=== PATIENT | female | born 1945 | race Caucasian/White ===

== ENCOUNTER → 2017-08-01 | Outpatient (CLI) | payer MEDICARE, OTHER ==
[~2017-08-01] MED LIST: AMBIEN 5 MG TABL5 M1 PO; ASPIRIN81 M2 PO; BENADRYL25 MG PO; CLEOCIN HCL300 MG PO; DIFLUCAN150 MG PO; ESTRADIOL 1 MG T1 M1 PO; HYDROCODONE-AP1 EAC6 PO; LINZESS145 MCG PO; LISINOPRIL20 MG PO; MIRAPEX 0.250.25 M1 PO; MOBIC15 MG PO; NEURONTIN 300300 M1 PO; NEURONTIN600 MG PO; PREDNISONE 10 M10 MG; SONATA5 M1 PO; WELLBUTRIN 100100 MG PO; WELLBUTRIN XL300 MG PO; ZOLOFT25 MG PO
== END ==
LOC: M.RAD 08:44
DX: M85.89 Other specified disorders of bone density and structure, multiple sites (principal); M81.0 Age-related osteoporosis without current pathological fracture; Z78.0 Asymptomatic menopausal state

== ENCOUNTER → 2017-10-05 | Outpatient (CLI) | payer OTHER | LOC: M.CT 09-28 09:45 | DX: Z13.6 Encounter for screening for cardiovascular disorders (principal) ==

== ENCOUNTER → 2017-10-26 | Outpatient (CLI) | payer MEDICARE, OTHER ==
[2017-10-26 10:41] LABS: ABSOLUTE EOSINOPHILS 0.2 thou/uL (0.0-0.7); ABSOLUTE LYMPHOCYTES 1.5 thou/uL (0.8-5.3); ABSOLUTE MONOCYTES 0.5 thou/uL (0.0-1.2); ABSOLUTE NEUTROPHILS 3.8 thou/uL (1.6-8.1); BASOPHILS 0.8 %; EOSINOPHILS 3.2 %; HEMATOCRIT 36.1 % (37.0-47.0); HEMOGLOBIN 12.1 gm/dL (12.0-15.0); MCH 32.1 pg (26.0-34.0); MCHC 33.4 g/dL (28.0-37.0); MONOCYTES 7.7 %; MPV 6.1 fl. (7.2-11.1); NUCLEATED RBCS 0 /100WBC; PLATELET COUNT* 277 thou/uL (150-400); POLYS 63.3 %; RBC 3.76 mil/uL (4.20-5.00); RDW-CV 12.6 % (10.5-14.5)
[2017-10-26 11:42] LABS: ESR (SEDRATE) 21 mm/hr (0-30)
== END ==
LOC: M.LAB 10:11
PROVIDERS: Orthopaedic Surgery
DX: M25.511 Pain in right shoulder (principal); I25.10 Atherosclerotic heart disease of native coronary artery without angina pectoris; M85.80 Other specified disorders of bone density and structure, unspecified site; Z96.611 Presence of right artificial shoulder joint

== ENCOUNTER → 2017-11-27 | Outpatient (CLI) | payer MEDICARE, OTHER | LOC: M.RAD 08:48 | DX: J40 Bronchitis, not specified as acute or chronic (principal); I10 Essential (primary) hypertension ==

== ENCOUNTER 2018-05-15 09:43 | Emergency (ER) | payer OTHER ==
[~2018-05-15] VITALS: Ht 167.6 cm; Wt 71.2 kg
[2018-05-15] MEDS ORDERED: LIPITOR10 MG PO (09:56)
[2018-05-15] MEDS ORDERED: COZAAR 25 MG TA25 M1 PO (09:56)
[2018-05-15] MEDS ORDERED: ALENDRONATE SOD70 MG PO (09:57)
[2018-05-15 12:40] VITALS: BP 156/57
== END 2018-05-15 14:48 | disposition home or self-care (01) ==
LOC: M.ERS 09:43
DX: M17.11 Unilateral primary osteoarthritis, right knee (principal); M25.461 Effusion, right knee; I10 Essential (primary) hypertension; Z90.710 Acquired absence of both cervix and uterus; Z87.442 Personal history of urinary calculi; Z96.611 Presence of right artificial shoulder joint

== ENCOUNTER → 2018-06-20 | Outpatient (CLI) | payer OTHER ==
[~2018-06-20] MED LIST changes: +ALENDRONATE SOD70 MG PO; +COZAAR 25 MG TA25 M1 PO; +LIPITOR10 MG PO
== END ==
LOC: M.LAB 13:42
PROVIDERS: Internal Medicine Gastroenterology
DX: D64.9 Anemia, unspecified (principal); R11.2 Nausea with vomiting, unspecified; M85.80 Other specified disorders of bone density and structure, unspecified site; I10 Essential (primary) hypertension; I25.10 Atherosclerotic heart disease of native coronary artery without angina pectoris

== ENCOUNTER 2018-08-30 05:59 | Inpatient (IN) | payer OTHER ==
[2018-08-15 09:10] LABS: ABSOLUTE EOSINOPHILS 0.1 thou/uL (0.0-0.7); ABSOLUTE LYMPHOCYTES 1.1 thou/uL (0.8-5.3); ABSOLUTE MONOCYTES 0.3 thou/uL (0.0-1.2); ABSOLUTE NEUTROPHILS 2.6 thou/uL (1.6-8.1); HEMATOCRIT 34.1 % (37.0-47.0); HEMOGLOBIN 11.2 gm/dL (12.0-15.0); LYMPHOCYTES 25.7 %; MCH 30.1 pg (26.0-34.0); MCHC 32.8 g/dL (28.0-37.0); MCV 91.7 fL (80.0-100.0); MPV 6.4 fl. (7.2-11.1); NUCLEATED RBCS 0 /100WBC; PLATELET COUNT* 253 thou/uL (150-400); POLYS 62.3 %; RBC 3.72 mil/uL (4.20-5.00); RDW-CV 13.6 % (10.5-14.5); WBC 4.1 thou/uL (4.0-11.0)
[2018-08-15 09:26] LABS: APTT 29.9 Seconds (25.0-31.3); PROTIME 10.7 Seconds (9.20-11.50)
[2018-08-15 09:27] LABS: CALCIUM 8.5 mg/dL (8.5-10.1); CREATININE 0.9 mg/dL (0.6-1.3); POTASSIUM 3.3 mmol/L (3.5-5.1)
[2018-08-15 09:32] LABS: ALBUMIN 3.7 g/dL (3.4-5.0); TOTAL BILIRUBIN 0.4 mg/dL (<0.1-1.0); TOTAL PROTEIN 6.6 g/dL (6.4-8.2)
[2018-08-15 10:48] LABS: ESR (SEDRATE) 13 mm/hr (0-30)
--- NOTE | 2018-08-15 10:57 | EKG ---
[place] [address] ELECTROCARDIOGRAM REPORT Name: AALIYAH CHRISTIANSENLMTea BHATIA Room: [facility] M.R.#: [id number] Admission: Attend Phys: Cody Sparks Discharge: Date of : 49 Report #: [id number] THIS REPORT FOR: //name// [facility] Test Date: 2018-08-15 Test Time: 09:11:32 Pat Name: KARLA CHRISTIANSEN Department: Room: Gender: F Mentally Impaired Teacher: : 1945 Requested By: Adria Cruz Order Number: [id number] Shavon MD: Rg Rodriguez Measurements Intervals [place] Rate: 73 P: -26 VT: 159 QRS: 11 QRSD: 86 T: 66 QT: 393 QTc: 433 Interpretive Statements Sinus rhythm Ventricular premature complex ST elevation, consider inferior injury Baseline wander in lead(s) II,III,aVL,aVF,V3,V4,V5,V6 Compared to ECG 01/04/2015 18:09:04 Ventricular premature complex(es) now present ST (T wave) deviation now present Myocardial infarct finding now present Electronically Signed On 08-15-2018 10:57:11 CDT by Rg Rodriguez [email or web address] <ELECTRONICALLY SIGNED> By: Rg Rodriguez MD, [facility] 08/15/18 1057 0 0 Rg Rodriguez MD, [facility] /EPI
[~2018-08-30] VITALS: Ht 167.6 cm; Wt 71.2 kg
--- NOTE | ~2018-08-30 | OP ---
[address] [address] OPERATIVE REPORT Name: KARLA CHRISTIANSEN Room: [facility].#: [id number] Admission: 08/30/18 Attend Phys: Cody Sparks Discharge: Date of : 49 Report #: [id number] THIS REPORT FOR: //name// CC: Adria Rodgers DICTATED BY: Marco Antonio Fregoso DO DATE OF SERVICE: 08/30/2018 DIAGNOSIS: Right knee degenerative joint disease. PROCEDURE PERFORMED: Right total knee arthroplasty. SURGEON: Adria Cruz DO. SENIOR ENVIRONMENTAL CONSULTANT: Marco Antonio Fregoso DO. ANESTHESIA: 1. General. 2. Local. 3. IV regional block. ESTIMATED BLOOD LOSS: 100 mL. SPECIMENS: None. COMPLICATIONS: None. DRAINS: None. CONDITION OF THE PATIENT: Stable to PACU. INDICATIONS FOR PROCEDURE: The patient is a pleasant 72-year-old female who has had severe osteoarthritis for many years. She has failed injections, activity modifications, weight management and home exercises. She continues to have pain, decreased quality of life. It is recommended she will be a candidate for right total knee arthroplasty. All risks, benefits, complications, indications and alternatives were reviewed. The patient wished to proceed. DESCRIPTION OF PROCEDURE: The patient was brought to the operative suite, placed in a well-padded table and given the benefit of general anesthesia. The right lower extremity was then sterilely prepped and draped in standard fashion. Timeout was taken to ensure correct patient, procedure and operative site and antibiotics were given; everybody in the room was in agreement. At that time, a [address] [place] [address] OPERATIVE REPORT Name: KARLA CHRISTIANSEN Room: [facility]..#: [id number] Admission: 08/30/18 Attend Phys: Cody Sparks Discharge: Date of : 49 Report #: [id number] 10 blade scalpel was used to make an incision over the anterior aspect of the right knee. Subcutaneous flaps were developed. Second 10 blade was used to perform medial parapatellar arthrotomy. Anterior horns of the menisci were excised. Subperiosteal tibial sleeve was developed. The knee was brought up into flexion. A drill was then used to find an intramedullary canal of the femur. We then used the intramedullary distal femoral cutting guide set at 5 degrees valgus, took a 10-mm resection of the distal femur. We then, using the AP sizing device, sized the femur to a size 8 and pinned this in with 3 degrees of external rotation. We then made the appropriate anterior and posterior cuts, followed by anterior, posterior and chamfer cuts with the 4-in-1 cutting block. Once this portion of the case was done, we then used extramedullary tibial guide. This was pinned in line with the medial third tibial tubercle, down the tibial crest of the middle of the ankle. Appropriate slope was dialed in. A 10-mm resection was made at the high lateral side. We then used a rongeur to remove any bony osteophytes that were still present, trialed with 12 block spacer and had adequate flexion and extension gaps that were equal. We then used Bovie electrocautery to remove the meniscal bodies at both medial and lateral as well as the PCL. The tibia was then sized to a size E. We screwed this in the appropriate position in line with the medial third of the tibial tubercle and had excellent fit and coverage of her tibia. We then put on a size 8 trial femur and a trial with 13-mm articular insert. With this, we had full range of motion, excellent varus and valgus stability and equal flexion and extension gaps. We then resurfaced the patella freehand with a saw and drilled 3 peg holes, measured this to a 32 mm component and trialed and had excellent patellar tracking. We then went on to drill and punch our proximal tibial. With pulsatile lavage, the bone ends and cement was mixed at the back table. We then carried out cementing first at the tibia, followed by the femur and patella. Patellar clamp was used to compress the patellar component. The 13-mm final articular insert was placed and once again, we were pleased with the varus and valgus stability as well as the full range of motion and stability through motion. Knee was then thoroughly irrigated with pulsatile lavage. Local pain cocktail was injected. We then brought the knee to 90 and allowed to sit here while the cement hardened. We then began closing with a #1 Vicryl in rarvah-rp-yzhpj fashion, followed by a running #1 Stratafix subcutaneously and closed with a 2-0 Vicryl followed by a 3-0 Stratafix and Dermabond glue. A Mepilex dressing and DIEGO hose were applied. The patient was awoken from Anesthesia and brought to the PACU in stable condition. By: 0933 [id number] Cruz DO /andreia
[~2018-08-30 05:59] MED LIST changes: +FLEXERIL PO; +LIPITOR 20 MG T20 M1 PO; +LOSARTAN-HCTZ1 EACH PO; +PROTONIX40 M1 PO; +REGLAN 5 MG TAB5 MG PO; +TROSPIUM CHLORI20 MG PO; +XANAX 0.5 MG0.5 MG PO
[2018-08-30 07:26] VITALS: BP 144/78
[2018-08-30 11:20] VITALS: BP 163/75
[2018-08-30 15:32] VITALS: BP 125/47
--- NOTE | 2018-08-30 16:16 | NUR ---
MARIANNA SAW PT.AND . SHE HAD RTKA TODAY. STATED HER WILL BE WITH HER AND CAN ASSIST HER AT DISCHARGE. SHE HAS A WALKER WITH A SEAT. TOLD HER SHE WILL NEED A STANDARD FRONT WHEEL WALKER. SHE USES [employer] FOR HER PHARMACY. PRESCRIPTION FOR [facility] CALLED IN WRITTEN [phone]. COPAY WILL NEED TO BE CHECKED. PT.CHOSE TO USE [facility] FOR HOME HEALTH. REFERRAL SENT TO [facility] AND SPOKE WITH HER. [facility] [phone]/ FAX [phone].
--- NOTE | 2018-08-30 16:26 | NUR ---
RECIEVED O.T. DONG. WILL DEFER TO P.T. AT THIS TIME. PLEASE ORDER FURTHER O.T. SERVICES IF NEEDED.
[2018-08-30 20:00] VITALS: BP 128/73
[2018-08-31] VITALS: BP 144/56
[2018-08-31 03:30] VITALS: BP 129/54
[2018-08-31 04:55] LABS: HEMATOCRIT 25.2 % (37.0-47.0); HEMOGLOBIN 8.7 gm/dL (12.0-15.0)
--- NOTE | 2018-08-31 05:48 | NUR ---
ASSUMED PATIENT CARE AT 1900. PATIENT ALERT AND ORIENTED TIMES FOUR. DAUGHTER IN ROOM AT THIS TIME PATIENT IS HOPEFUL SHE WILL BE ABLE TO DISCHARGE HOME SOON. PAIN CONTROLLED WITH ORAL PAIN MEDICATION. BIOCHEMICAL DEVELOPMENT ENGINEER AND HOURLY ROUNDING COMPLETED DOCUMENTED
[2018-08-31 08:11] VITALS: BP 102/48
--- NOTE | 2018-08-31 09:25 | NUR ---
Eliquis will cost $55.57
[2018-08-31 17:09] VITALS: BP 127/44
--- NOTE | 2018-08-31 19:00 | NUR ---
REC'D REPORT ON PATENT APPROX 1400. PATIENT ALERT AND ORIENTED. SEE MEDICATION LIST FOR PAIN RELIEF. POLAR PACK CURRENTLY ON RIGHT KNEE SURGICAL AREA. PATIENT PLEASANT AND COOPERATIVE. PATIENT USING FWW W/ SBA WHILE AMBULATING. IN VISITING THIS AFTERNOON. PATIENT CURRENTLY RESTING IN BED. CALL LIGHT IN REACH. TV ON. DENIES OTHER NURSING NEEDS AT THIS TIME. ~TJRN
[2018-08-31 21:00] VITALS: BP 128/46
[2018-09-01 04:30] LABS: HEMOGLOBIN 8.6 gm/dL (12.0-15.0); MCH 31.5 pg (26.0-34.0); MCHC 34.5 g/dL (28.0-37.0); MCV 91.5 fL (80.0-100.0); MPV 6.8 fl. (7.2-11.1); RBC 2.73 mil/uL (4.20-5.00); RDW-CV 13.9 % (10.5-14.5); WBC 7.8 thou/uL (4.0-11.0)
[2018-09-01 04:53] LABS: CALCIUM 8.3 mg/dL (8.5-10.1); CREATININE 0.7 mg/dL (0.6-1.3); MAGNESIUM 1.6 mg/dL (1.8-2.4); POTASSIUM 3.9 mmol/L (3.5-5.1)
--- NOTE | 2018-09-01 06:12 | NUR ---
PT REMAINED ALERT AND ORIENTED. VITALS STABLE RA. MEDS GIVEN ORDERED. PAIN CONTROLLED WITH HYDRO AND OXY IR. PT STATED HAVING BM 5 DAYS AGO BUT REFUSED ANY LAXATIVES. NO NAUSEA OR VOMITING. DRESSING ON RT HIP CLEAN AND DRY. POLAR CARE IN PLACE. WILL CONTINUE TO MONITOR.
[2018-09-01 08:02] VITALS: BP 174/67
[2018-09-01] MEDS ORDERED: FERREX 150 PLU1 EAC1 PO (09:28)
[2018-09-01] MEDS ORDERED: LIDOPATCH1 EACH TOP (09:28)
[2018-09-01] MEDS ORDERED: ELIQUIS5 MG PO (09:28)
[2018-09-01] MEDS ORDERED: OXYCODONE HCL 55 MG PO (09:28)
[2018-09-01] MEDS ORDERED: TRAMADOL 50 MG50 MG PO (09:28)
[2018-09-01 09:42] VITALS: BP 174/67
[2018-09-01 16:42] VITALS: BP 170/64
--- NOTE | 2018-09-01 17:00 | NUR ---
DISCHARGE TO HOME W/ HOME HEALTH SERVICES. DISCHARGE INSTRUCTION REVIEWED W/ PATIENT, PATIENT STATES VERBALLY OF UNDERSTANDING. COPY OF DISCHARGE INSTRUCTIONS AND SCRIPTS GIVEN TO PATIENT. BELONGINGS GATHERED W/ PRESENT, CPM AND WALKER AMONG SUPPLIES SENT HOME WITH PATIENT. PATIENT CONTINUES TO C/O INCREASED STIFFNESS IN RIGHT KNEE, PATIENT STATES THAT SHE DOESN'T HAVE PAIN WHEN SHE IS LAYING DOWN AND STILL. PATIENT INSTRUCTED TO F/U WITH PHYSICIAN WITH ANY INCREASE IN PAIN OR S/S INFECTION/DVT SUCH REDNESS, SWELLING. PATIENT STATES VERBALLY OF UNDERSTANDING. IV CATH DISCONTINUED W/ TIP INTACT. COTTON BALL/TAPE APPLIED TO SITE. PATIENT ESCORTED TO AWAITING VEHICLE VIA WC PER LIVESTOCK BRANDS INSPECTOR. DENIES FURTHER NURSING NEEDS AT TIME OF DISCHARGE. ~TJRN
== END 2018-09-01 17:00 | disposition home health service (06) | DRG 470 ==
LOC: M.SUR 05:59 → M.ORTHSURG 12:21
PROVIDERS: Internal Medicine; Orthopaedic Surgery; ADMIT Internal Medicine
PROC: 0SRC0J9 Replacement of Right Knee Joint with Synthetic Substitute, Cemented, Open Approach (ICD-10-PCS; principal; 2018-08-30)
DX: M17.11 Unilateral primary osteoarthritis, right knee (principal); I10 Essential (primary) hypertension; Z96.1 Presence of intraocular lens; Z96.611 Presence of right artificial shoulder joint; Z90.710 Acquired absence of both cervix and uterus; Z98.41 Cataract extraction status, right eye; Z98.42 Cataract extraction status, left eye; Z90.49 Acquired absence of other specified parts of digestive tract; Z98.84 Bariatric surgery status; Z87.442 Personal history of urinary calculi

== ENCOUNTER → 2019-02-18 | Outpatient (CLI) | payer OTHER ==
[~2019-02-18] MED LIST changes: +COLACE100 MG PO; +ELIQUIS2.5 MG PO; +ELIQUIS5 MG PO; +FERREX 150 PLU1 EAC1 PO; +LIDOPATCH1 EACH TOP; +MILK OF MA400 MG/5 M PO; +NORCO 5-325 TA1 EAC1 PO; +OXYCODONE HCL 55 MG PO; +TRAMADOL 50 MG50 MG PO
== END ==
LOC: M.RAD 10:40
DX: Z12.31 Encounter for screening mammogram for malignant neoplasm of breast (principal)

== ENCOUNTER 2019-02-21 06:05 | Inpatient (IN) | payer OTHER ==
[2019-02-06 09:23] LABS: ABSOLUTE EOSINOPHILS 0.1 thou/uL (0.0-0.7); ABSOLUTE LYMPHOCYTES 0.8 thou/uL (0.8-5.3); ABSOLUTE MONOCYTES 0.4 thou/uL (0.0-1.2); ABSOLUTE NEUTROPHILS 2.7 thou/uL (1.6-8.1); BASOPHILS 0.9 %; HEMATOCRIT 33.8 % (37.0-47.0); HEMOGLOBIN 11.6 gm/dL (12.0-15.0); LYMPHOCYTES 19.6 %; MCH 32.9 pg (26.0-34.0); MCHC 34.4 g/dL (28.0-37.0); MCV 95.7 fL (80.0-100.0); MONOCYTES 9.9 %; MPV 5.7 fl. (7.2-11.1); NUCLEATED RBCS 0 /100WBC; PLATELET COUNT* 219 thou/uL (150-400); POLYS 66.6 %; RBC 3.53 mil/uL (4.20-5.00); RDW-CV 15.9 % (10.5-14.5); WBC 4.1 thou/uL (4.0-11.0)
[2019-02-06 09:32] LABS: APTT 27.3 Seconds (25.0-31.3); PROTIME 10.6 Seconds (9.20-11.50)
[2019-02-06 09:46] LABS: ALBUMIN 3.6 g/dL (3.4-5.0); CALCIUM 8.7 mg/dL (8.5-10.1); POTASSIUM 4.2 mmol/L (3.5-5.1); TOTAL BILIRUBIN 0.3 mg/dL (<0.1-1.0); TOTAL PROTEIN 6.6 g/dL (6.4-8.2)
[2019-02-06 10:37] LABS: ESR (SEDRATE) 10 mm/hr (0-30)
--- NOTE | 2019-02-06 11:20 | EKG ---
[place] [address] ELECTROCARDIOGRAM REPORT Name: CHRISTIANSENAALIYAHKARLA JANNETTE Room: [facility]..#: [id number] Admission: Attend Phys: Adria Cruz DO Discharge: Date of : 49 Report #: [id number] THIS REPORT FOR: //name// [facility] Test Date: 2019-02-06 Test Time: 09:32:20 Pat Name: KARLA CHRISTIANSEN Department: Room: Gender: F Gluing Machine Operator Electronic: : 1945 Requested By: Adria Cruz Order Number: [id number] Shavon MD: Onesimo Medeiros Measurements Intervals [place] Rate: 75 P: -28 CA: 163 QRS: -23 QRSD: 90 T: 45 QT: 389 QTc: 435 Interpretive Statements Sinus rhythm Borderline left axis deviation Baseline wander in lead(s) II,III,aVR,aVF Compared to ECG 08/15/2018 09:11:32 Ventricular premature complex(es) no longer present ST (T wave) deviation no longer present Myocardial infarct finding no longer present Electronically Signed On 02-06-2019 11:20:42 CDT by Onesimo Medeiros [email or web address] <ELECTRONICALLY SIGNED> By: Onesimo Medeiros MD, FACC 02/06/19 1120 1 Onesimo Medeiros MD, FACC /EPI
[~2019-02-21] VITALS: Ht 167.6 cm; Wt 65.8 kg
[~2019-02-21 06:05] MED LIST changes: -COLACE100 MG PO; -ELIQUIS2.5 MG PO; -MILK OF MA400 MG/5 M PO; -NORCO 5-325 TA1 EAC1 PO
[2019-02-21 06:35] VITALS: BP 136/66
[2019-02-21 15:29] VITALS: BP 156/63
[2019-02-21 20:28] VITALS: BP 167/83
[2019-02-22] VITALS (8 sets, daily range): BP systolic 139–156; BP diastolic 58–70
[2019-02-22 04:17] LABS: HEMATOCRIT 29.3 % (37.0-47.0); HEMOGLOBIN 9.8 gm/dL (12.0-15.0)
[2019-02-22] MEDS ORDERED: OXYCODONE HCL 55 MG PO (11:01)
[2019-02-22] MEDS ORDERED: ELIQUIS2.5 MG PO (11:01)
[2019-02-22] MEDS ORDERED: TRAMADOL 50 MG50 MG PO (11:01)
[2019-02-22] MEDS ORDERED: COLACE100 MG PO (11:02)
[2019-02-22] MEDS ORDERED: MILK OF MA400 MG/5 M PO (11:05)
[2019-02-22] MEDS ORDERED: NORCO 5-325 TA1 EAC1 PO (12:57)
--- NOTE | 2019-02-28 13:42 | OP ---
[address] [place] [address] OPERATIVE REPORT Name: KARLA CHRISTIANSEN Room: [address] IN ..#: [id number] Admission: 02/21/19 Attend Phys: Cody Sparks Discharge: 02/22/19 Date of : 49 Report #: [id number] THIS REPORT FOR: //name// CC: Lori Rodgers DATE OF SERVICE: 02/21/2019 PREOPERATIVE DIAGNOSIS: Primary osteoarthritis, left knee. POSTOPERATIVE DIAGNOSIS: Primary osteoarthritis, left knee. PROCEDURES: 1. Left total knee arthroplasty. 2. Open reduction and internal fixation, medial femoral epicondyle. SURGEON: Adria Cruz DO CLOTH MERCERIZER BACK TENDER: Jose Chance DO ANESTHESIA: General with peripheral nerve block per anesthesia in preoperative holding and local periarticular block. FLUIDS: Lactated Ringer's. ANTIBIOTICS: 2 g Ancef IV preoperatively. DRAINS: None. SPECIMENS: None. ESTIMATED BLOOD LOSS: 150 mL. COMPLICATIONS: Intraoperative medial femoral epicondyle fracture. DRAINS: None. SPECIMENS: None. ORTHOPEDIC IMPLANTS: Pierre Persona total knee arthroplasty system. OTHER: 1 g tranexamic acid IV preoperatively. HISTORY: The patient is a 73-year-old female with longstanding history of left knee pain. She has known advanced osteoarthritis of the left knee. Radiographs show liqr-sk-zptb articulation, subchondral sclerosis, and periarticular [address] [place] [address] OPERATIVE REPORT Name: KARLA CHRISTIANSEN Room: [address] M.R.#: [id number] Admission: 02/21/19 Attend Phys: Cody Sparks Discharge: 02/22/19 Date of : 49 Report #: [id number] osteophytes. She has failed nonoperative treatments in the form of corticosteroid injections as well as physical therapy. She walks with antalgic gait with a valgus deformity. She returns today for elective left total knee arthroplasty. Risks, benefits, complication, indications, and alternatives were discussed. She has voiced understanding and signed consent and elected to proceed. Risks include but not limited to fracture, infection, neurovascular injury, continued pain, loss of motion, need for subsequent revision surgery, DVT, PE, TX, stroke, and even . DESCRIPTION OF PROCEDURE: The patient was taken to the operative suite, placed in supine position, given benefit of general anesthetic after being given peripheral nerve blocks in preoperative holding. A well-padded tourniquet was placed on the left upper thigh. Left lower extremity was sterilely prepped and draped in the usual fashion. Proper operative sites confirmed standard timeout technique. An anterior midline incision was made at the left knee. Dissection was carried out at the anterior retinaculum. Standard medial parapatellar arthrotomy was performed. Infrapatellar fat pad was debrided. Subperiosteal sleeve was elevated off the medial tibial plateau. The patella was everted and the knee was brought into full flexion. Intramedullary canal of the femur was accessed with a starting drill. Intramedullary curry was placed and a 7-degree valgus cut was utilized. Block was pinned into position and the cut was made with an oscillating saw. The distal femur was then sized and drilled in appropriate external rotation with regards to Anamaria's lines and epicondylar axis. The 4-in-1 cutting block was placed. Anterior cut was confirmed to be appropriate with a feeler gauge and then a block was pinned into position. All 4 cuts were made with an oscillating saw. I then turned my attention to the proximal tibia where an extramedullary alignment guide was placed in line with the mechanical axis of the tibia. Depth of resection was measured as 2 mm off the most effective portion of the lateral tibial plateau. The block was pinned into position and the cut was made with an oscillating saw. The proximal tibia was then sized. Trial tibial baseplate was pinned into position. Trial femoral component was placed and a trial tibial insert was placed. The knee was taken through full range of motion, shown to have excellent ligamentous stability and range of motion with a 14-mm spacer. The attention was then turned to the patella, which was freehand cut with an oscillating saw, it was then measured and drilled. A trial patellar button was placed. Knee was taken through a range of motion, shown to have excellent patellar tracking. All trials were removed except the tibial baseplate which was used to prepare the proximal tibia with cruciform punch. This trial was then removed. Cut bone surfaces were thoroughly irrigated with pulse lavage and then dried. Posterior capsule was injected with pain cocktail consisting of Marcaine, morphine, epinephrine, and normal saline. Posterior capsule was cauterized with Bovie at this time as well. Cement was mixed. Once cement reached appropriate viscosity, the final components were cemented into position starting with the tibia, the femur, and the patella. Patella was compressed with patellar clamp. All excess cement was removed. Thorough irrigation was performed. Final tibial insert was implanted [address] [address] OPERATIVE REPORT Name: KARLA CHRISTIANSEN Room: [address] IN [facility]#: [id number] Admission: 02/21/19 Attend Phys: Cody Sparks Discharge: 02/22/19 Date of : 49 Report #: [id number] at this time. At this time, during final tibial insert implantation, it was noted that the medial femoral epicondyle cortex began to peel due to the patient's osteoporotic bone. I then secured this area utilizing a 5.5 mm Bio-SwiveLock suture anchor from [employer] placed into the cancellous bone achieving excellent fixation. Four suture limbs were passed individually through the medial soft tissue structures as well as cortex of the medial femoral epicondyle and the suture limbs were tied over the top providing excellent fixation of this incomplete fracture of the medial femoral epicondyle. Thorough irrigation was performed. Tourniquet was taken down. Hemostasis was shown to be appropriate. Anterior retinaculum was closed with combination of #1 Vicryl interrupted sodbwx-cg-nzhca fashion and running #2 Quill suture. Subcuticular closure was performed with 2-0 Vicryl in simple inverted interrupted fashion. The skin was closed with running 3-0 Stratafix subcuticular suture with Dermabond on skin. Sterile dressings were applied. The patient tolerated the procedure well. All sponge and needle counts were correct x 2. The patient was taken to recovery room in stable condition. Adria Hatfield DO, attest that I was present and scrubbed in for the entirety of the case excluding skin closure. <ELECTRONICALLY SIGNED> By: Jamal Borja DO 02/28/19 1342 0810 0901Adria Cruz DO /andreia
== END 2019-02-22 15:19 | disposition home health service (06) | DRG 470 ==
LOC: M.TBA 06:05 → M.SUR 06:32 → EDSTATUS 07:24 → M.TBA 07:26 → M.ORTHSURG 10:40 → M.TBA 10:40 → M.ORTHSURG 11:46 → M.TBA 13:48 → M.ORTHSURG 02-22 15:19
PROVIDERS: Orthopaedic Surgery; ADMIT Internal Medicine
PROC: 0QSC04Z Reposition Left Lower Femur with Internal Fixation Device, Open Approach (ICD-10-PCS; principal; 2019-02-21)
PROC: 0SRD0J9 Replacement of Left Knee Joint with Synthetic Substitute, Cemented, Open Approach (ICD-10-PCS; principal; 2019-02-21)
DX: M17.12 Unilateral primary osteoarthritis, left knee (principal); T84.89XA Other specified complication of internal orthopedic prosthetic devices, implants and grafts, initial encounter; M96.662 Fracture of femur following insertion of orthopedic implant, joint prosthesis, or bone plate, left leg; Y83.8 Other surgical procedures as the cause of abnormal reaction of the patient, or of later complication, without mention of misadventure at the time of the procedure; Y92.234 Operating room of hospital as the place of occurrence of the external cause; I10 Essential (primary) hypertension; K21.9 Gastro-esophageal reflux disease without esophagitis; F41.9 Anxiety disorder, unspecified; M81.0 Age-related osteoporosis without current pathological fracture; E78.5 Hyperlipidemia, unspecified; Z98.42 Cataract extraction status, left eye; Z98.41 Cataract extraction status, right eye; Z90.49 Acquired absence of other specified parts of digestive tract; Z82.49 Family history of ischemic heart disease and other diseases of the circulatory system; Z90.710 Acquired absence of both cervix and uterus

== ENCOUNTER → 2019-04-11 | Outpatient (CLI) | payer OTHER ==
[~2019-04-11] MED LIST changes: +COLACE100 MG PO; +ELIQUIS2.5 MG PO; +MILK OF MA400 MG/5 M PO; +NORCO 5-325 TA1 EAC1 PO
== END ==
LOC: M.ULTRA 12:21
DX: N63.22 Unspecified lump in the left breast, upper inner quadrant (principal)

== ENCOUNTER → 2019-06-09 | Outpatient (CLI) | payer OTHER | LOC: M.ULTRA 10:20 | DX: I65.23 Occlusion and stenosis of bilateral carotid arteries (principal); I25.10 Atherosclerotic heart disease of native coronary artery without angina pectoris; E78.2 Mixed hyperlipidemia; I10 Essential (primary) hypertension; R42 Dizziness and giddiness ==

== ENCOUNTER → 2020-03-02 | Outpatient (CLI) | payer OTHER | LOC: M.RAD 10:20 → M.ULTRA 11:00 | PROVIDERS: ATTEND Orthopaedic Surgery | DX: Z12.31 Encounter for screening mammogram for malignant neoplasm of breast (principal); M25.512 Pain in left shoulder ==

== ENCOUNTER → 2020-06-03 | Outpatient (CLI) | payer OTHER ==
[2020-06-03 15:14] LABS: ABSOLUTE BASOPHILS 0.1 thou/uL (0.0-0.2); ABSOLUTE EOSINOPHILS 0.2 thou/uL (0.0-0.7); ABSOLUTE LYMPHOCYTES 0.8 thou/uL (0.8-5.3); ABSOLUTE MONOCYTES 0.4 thou/uL (0.0-1.2); ABSOLUTE NEUTROPHILS 5.1 thou/uL (1.6-8.1); BASOPHILS 0.9 %; EOSINOPHILS 2.6 %; HEMATOCRIT 32.3 % (37.0-47.0); HEMOGLOBIN 11.2 gm/dL (12.0-15.0); LYMPHOCYTES 12.9 %; MCHC 34.7 g/dL (28.0-37.0); MCV 97.8 fL (80.0-100.0); MONOCYTES 5.9 %; MPV 6.2 fl. (7.2-11.1); NUCLEATED RBCS 0 /100WBC; PLATELET COUNT* 214 thou/uL (150-400); POLYS 77.7 %; RBC 3.31 mil/uL (4.20-5.00); RDW-CV 13.2 % (10.5-14.5); WBC 6.6 thou/uL (4.0-11.0)
[2020-06-03 15:58] LABS: % SATURATION 28 % (20-39); IRON 84 ug/dL (50-175)
== END ==
LOC: M.LAB 14:51
PROVIDERS: ATTEND Internal Medicine Gastroenterology
DX: D64.9 Anemia, unspecified (principal); R53.83 Other fatigue; R19.7 Diarrhea, unspecified

== ENCOUNTER → 2020-07-05 | Outpatient (CLI) | payer OTHER | LOC: M.CT 08:27 | PROVIDERS: ATTEND Internal Medicine | DX: G31.9 Degenerative disease of nervous system, unspecified (principal); R26.2 Difficulty in walking, not elsewhere classified ==

== ENCOUNTER 2020-07-15 12:57 | Inpatient (IN) | payer OTHER ==
[~2020-07-15] VITALS: Ht 167.6 cm; Wt 71.6 kg
[2020-07-15 13:10] VITALS: BP 123/66
[2020-07-15 13:31] LABS: ABSOLUTE BASOPHILS 0.1 thou/uL (0.0-0.2); ABSOLUTE EOSINOPHILS 0.3 thou/uL (0.0-0.7); ABSOLUTE LYMPHOCYTES 0.6 thou/uL (0.8-5.3); ABSOLUTE MONOCYTES 0.4 thou/uL (0.0-1.2); ABSOLUTE NEUTROPHILS 6.5 thou/uL (1.6-8.1); BASOPHILS 0.9 %; EOSINOPHILS 4.4 %; HEMATOCRIT 27.5 % (37.0-47.0); HEMOGLOBIN 9.3 gm/dL (12.0-15.0); LYMPHOCYTES 7.6 %; MCH 32.2 pg (26.0-34.0); MCHC 33.7 g/dL (28.0-37.0); MCV 95.5 fL (80.0-100.0); MONOCYTES 4.9 %; MPV 6.5 fl. (7.2-11.1); NUCLEATED RBCS 0 /100WBC; PLATELET COUNT* 198 thou/uL (150-400); POLYS 82.2 %; RBC 2.88 mil/uL (4.20-5.00); RDW-CV 12.6 % (10.5-14.5); WBC 7.9 thou/uL (4.0-11.0)
[2020-07-15 13:41] LABS: CALCIUM 7.8 mg/dL (8.5-10.1); CREATININE 7.8 mg/dL (0.6-1.3)
[2020-07-15 13:52] LABS: ALBUMIN 3.5 g/dL (3.4-5.0); TOTAL BILIRUBIN 0.3 mg/dL (<0.1-1.0); TOTAL PROTEIN 6.9 g/dL (6.4-8.2)
[2020-07-15 14:20] LABS: APTT 29.1 Seconds (25.0-31.3); PROTIME 10.9 Seconds (9.20-11.50)
[2020-07-15 17:41] VITALS: BP 193/83
[2020-07-15 17:50] VITALS: BP 205/83
--- NOTE | 2020-07-15 18:30 | NUR ---
PATIENT ARRIVED THIS EVENING AT 1750 PER CART. PATIENT IS ALERT AND ORIENTED X 4. SHE DENIES PAIN BUT C/O PROFOUND WEAKNESS. PATIENT PLACED ON TELE MONITOR. ORIENTED TO ROOM AND PROCEDURES. IV FLUIDS CONTINUED FROM ER. PLACED ON TELE MONITOR. TELE SHOWS SR. US HERE TO PERFORM US OF KIDNEYS. DIET ORDERED.
[2020-07-15 19:30] VITALS: BP 143/83
[2020-07-16] VITALS (7 sets, daily range): BP systolic 129–168; BP diastolic 53–68
--- NOTE | 2020-07-16 07:10 | NUR ---
NO ACUTE CHANGES THROUGHOUT SHIFT. SEE CHARTING FOR DETAILS.
[2020-07-16 09:24] LABS: URINE BILIRUBIN NEGATIVE (Negative); URINE BLOOD NEGATIVE (Negative); URINE CLARITY CLEAR; URINE COLOR YELLOW; URINE GLUCOSE-RANDOM NEGATIVE (Negative); URINE KETONES NEGATIVE (Negative); URINE NITRITE-REFLEX NEGATIVE (Negative); URINE PROTEIN NEGATIVE (Negative); URINE UROBILINOGEN 0.2 E.U./dl (0.2-1.0)
[2020-07-16 09:28] LABS: URINE LEUKOCYTES-REFLEX 3+ (Negative)
[2020-07-16 09:37] LABS: BACTERIA-REFLEX 1-9 Few /HPF (None Seen); CASTS None Seen /LPF (None Seen); CRYSTALS None Seen /LPF (None Seen); SQUAMOUS 0-3 Few /LPF (0-3); URINE RBC 0-2 Rare /HPF (0-2); URINE WBC-REFLEX 0-5 Rare /HPF (0-5)
--- NOTE | 2020-07-16 09:50 | EKG ---
[place] [address] ELECTROCARDIOGRAM REPORT Name: KARLA CHRISTIANSEN Room: [address] ADM IN .R.#: [id number] Admission: 07/15/20 Attend Phys: Sherrie Lew, Discharge: Date of : 49 Date of Service: 07/15/20 1338 Report #: [id number] THIS REPORT FOR: //name// [facility] ED Test Date: 2020-07-15 Test Time: 13:38:03 Pat Name: KARLA CHRISTIANSEN Department: Room: [facility] Gender: F Client Associate: JEFFREY : 1945 Requested By: Wellington Holland Order Number: [id number] MD: Wei Arroyo Measurements Intervals [place] Rate: 76 P: 0 GA: 196 QRS: -1 QRSD: 143 T: 52 QT: 404 QTc: 455 Interpretive Statements Sinus rhythm artifact noted Compared to ECG 02/06/2019 09:32:20 No significant changes Electronically Signed On 07-16-2020 9:50:14 CDT by Wei Arroyo [email or web address] <ELECTRONICALLY SIGNED> By: Wei Arroyo MD, [facility] 07/16/20 0950 1338 1338 Wei Arroyo MD, [facility] /EPI
[2020-07-16 11:11] LABS: CALCIUM 7.8 mg/dL (8.5-10.1); CREATININE 7.5 mg/dL (0.6-1.3); POTASSIUM 3.7 mmol/L (3.5-5.1)
--- NOTE | 2020-07-16 14:03 | NUR ---
Pt is A&O. Resides at home with her . Independent. Pt uses a cane or walker PRN for mobility. No home o2. Hx of [facility] HH post knee replacement. No hx of SNF. Pt's goal is to return home at dc, Pt wanting HH and would like to use [facility] again. CM asked for [place], [facility] liaison to speak with Pt. Anticipate dc in 1-2 days
--- NOTE | 2020-07-16 14:50 | NUR ---
[facility] Nurse Transition Navigator Bedside Assessment: Met with patient and . They have used [facility] in the past and want again. Discussed meds, transportation, Homebound, and when to expect a call. Probable dc tomorrow. Notified CM of this. Referral sent.
--- NOTE | 2020-07-16 21:02 | NUR ---
faustina resting in room at end of day shift. report given to shift foreman nurse. all belongings in reach, call light within reach.
[2020-07-17] VITALS (7 sets, daily range): BP systolic 142–188; BP diastolic 55–69
[2020-07-17 05:07] LABS: COMPLEMENT-C4 19 mg/dL (12-38)
[2020-07-17 05:21] LABS: PHOSPHORUS* 8.7 mg/dL (2.5-4.9); URIC ACID* 5.7 mg/dL (2.6-7.2)
[2020-07-17 05:26] LABS: % SATURATION 73 % (20-39); IRON 116 ug/dL (50-175)
[2020-07-17 05:27] LABS: CALCIUM 7.7 mg/dL (8.5-10.1); CREATININE 7.3 mg/dL (0.6-1.3)
[2020-07-17 05:29] LABS: CALCIUM 7.4 mg/dL (8.5-10.1); CREATININE 7.2 mg/dL (0.6-1.3); POTASSIUM 3.3 mmol/L (3.5-5.1)
--- NOTE | 2020-07-17 05:43 | NUR ---
NO ACUTE CHANGES THROUGHOUT SHIFT. SEE CHARTING FOR DETAILS. ALL ROUNDINGS COMPLETED, ALL NEEDS MET.
[2020-07-17 14:23] LABS: BE -16.4 mmol/L (-2 to +3); PCO2 VENOUS 34.7 mmHg (41.0-51.0); PO2 VENOUS 49.4 mmHg (35.0-45.0)
--- NOTE | 2020-07-17 19:49 | NUR ---
patient resting in room with call light and all personal belongings within reach. patinet is comfortable, report given to manager of clinical nurse.
[2020-07-17 20:16] LABS: MAGNESIUM 2.1 mg/dL (1.8-2.4)
[2020-07-18] VITALS (7 sets, daily range): BP systolic 144–197; BP diastolic 54–83
[2020-07-18 02:05] LABS: HEPATITIS B SURFACE AG Negative (Negative)
[2020-07-18 05:56] LABS: ALBUMIN 2.9 g/dL (3.4-5.0); CALCIUM 7.6 mg/dL (8.5-10.1); CREATININE 6.4 mg/dL (0.6-1.3); MAGNESIUM 1.9 mg/dL (1.8-2.4); PHOSPHORUS* 7.5 mg/dL (2.5-4.9); POTASSIUM 3.7 mmol/L (3.5-5.1)
--- NOTE | 2020-07-18 19:47 | NUR ---
patient resting in room with call light and other personal belongings within reach, iv fluids running. Report given to restaurant shift leader nurse.
--- NOTE | 2020-07-18 20:00 | NUR ---
RECEIVED REPORT AND ASSUMED CARE OF PT, ASSESSMENT COMPLETED. PT DENIES COMPLAINTS OTHER THAN CONSTIPATION. TELEMETRY ON SHOWING SR. WILL CONT TO MONITOR AND ASSIST NEEDED.
[2020-07-19] VITALS: BP 159/63
[2020-07-19 04:00] VITALS: BP 142/47
[2020-07-19 05:06] LABS: IgA 100 mg/dL (64-422); IgG 706 mg/dL (586-1602); IgM 123 mg/dL (26-217)
--- NOTE | 2020-07-19 07:15 | NUR ---
SLEPT WELL TONIGHT. GAIT STEADY TO AND FROM BR WITH CANE AND SBA. VOIDING WITHOUT DIFFICULTY. NO BM TONIGHT, CONT HAVING ABD DISCOMFORT. TELEMETRY CONT TO SHOW SR. NO CHANGE IN ASSESSMENT. HS GOALS OF REST AND SAFETY ACHIEVED. HOURLY ROUNDING OBSERVED.
[2020-07-19 08:00] VITALS: BP 170/68
[2020-07-19 10:03] LABS: CALCIUM 7.7 mg/dL (8.5-10.1); CREATININE 5.7 mg/dL (0.6-1.3); POTASSIUM 3.1 mmol/L (3.5-5.1)
[2020-07-19 12:00] VITALS: BP 135/54; BP 170/73
--- NOTE | 2020-07-19 13:17 | NUR ---
Renal workup pending. Anticipate dc in a few days. Plan is home with [facility]. CM following.
--- NOTE | 2020-07-19 14:58 | NUR ---
[facility] Nurse Trans. Rogers. follow up note: Patient continues Renal Work-up. No discharge date scheduled. HH Referral has been initiated.
[2020-07-19 15:07] LABS: KAPPA FREE LIGHT CHAINS 116.2 mg/L (3.3-19.4); LAMBDA FREE LIGHT CHAINS 47.7 mg/L (5.7-26.3)
[2020-07-19 19:30] VITALS: BP 171/80
--- NOTE | 2020-07-19 20:17 | NUR ---
patient resting quietly in room with monitor and storage bin tender on, iv fluids running, bed alarm on, with all belongings in reach with call light. report given to casino shift manager nurse.
[2020-07-20] VITALS: BP 161/67
[2020-07-20 04:56] VITALS: BP 139/75
--- NOTE | 2020-07-20 05:32 | NUR ---
PT SLEPT MOST OF SHIFT. ASSESSMENT DOCUMENTED. MEDS GIVEN PER E-MAR. IV PATENT. TYLENOL GIVEN FOR HEADACHE WITH RELIEF. FALL PRECAUTIONS IN PLACE. PT ABLE TO MAKE NEEDS KNOWN.
[2020-07-20 06:10] LABS: CALCIUM 7.9 mg/dL (8.5-10.1); CREATININE 5.4 mg/dL (0.6-1.3); POTASSIUM 3.4 mmol/L (3.5-5.1)
[2020-07-20 06:13] LABS: CALCIUM 8.5 mg/dL (8.5-10.1); CREATININE 5.5 mg/dL (0.6-1.3); POTASSIUM 3.4 mmol/L (3.5-5.1)
[2020-07-20 12:00] VITALS: BP 149/69
--- NOTE | 2020-07-20 14:51 | NUR ---
Anticipate dc to home in a few days with [facility] HH. Renal following.
[2020-07-20 16:00] VITALS: BP 133/64
--- NOTE | 2020-07-20 19:07 | NUR ---
BEDSIDE REPORT GIVN TO NIGHT RN.
[2020-07-20 19:40] VITALS: BP 179/69
[2020-07-20 21:05] LABS: URINE PROTEIN (MG/DL) 16.2 mg/dL (Not Estab.)
[2020-07-20 21:05] LABS: GLOBULIN TOTAL 2.3 g/dL (2.2-3.9); M-SPIKE Not Observed g/dL (Not Observed)
[2020-07-21] VITALS (7 sets, daily range): BP systolic 16–187; BP diastolic 49–75
[2020-07-21 06:28] LABS: CALCIUM 8.2 mg/dL (8.5-10.1); CREATININE 5.1 mg/dL (0.6-1.3); POTASSIUM 3.4 mmol/L (3.5-5.1)
--- NOTE | 2020-07-21 06:58 | NUR ---
PT SLEPT MOST OF SHIFT, ASSESSMENT DOCUMENTED. MEDS GIVEN PER E-JUN. IV PATENT. NO REPORTS OF PAIN THIS SHIFT. FALL PRECAUTIONS IN PLACE. PT ABLE TO MAKE NEEDS KNOWN. WILL CONTINUE WITH PLAN OF CARE.
--- NOTE | 2020-07-21 13:09 | NUR ---
Renal continues to follow, Pt may need biopsy, pending labs vs having biopsy as outpt. Cr not improving. [facility]
--- NOTE | 2020-07-21 14:00 | NUR ---
production ski repairer dc'd per physician order. Pt transferred to 110. Report called to EARLENE Marley. VSS.
--- NOTE | 2020-07-21 19:46 | NUR ---
Pt remained A&O x4 for enitre shift. Vital signs stable. Pt pleasant with staff. Pt denies any pain. Pt ready to go home tomorrow and was told that she can if her labs improve. Bed in low position, call light within reach.
[2020-07-22 04:29] LABS: MCH 31.9 pg (26.0-34.0); MCHC 33.5 g/dL (28.0-37.0); MCV 95.1 fL (80.0-100.0); RBC 2.21 mil/uL (4.20-5.00); RDW-CV 12.5 % (10.5-14.5); WBC 7.5 thou/uL (4.0-11.0)
[2020-07-22 04:32] VITALS: BP 120/66
[2020-07-22 04:33] LABS: CALCIUM 7.9 mg/dL (8.5-10.1); CREATININE 4.8 mg/dL (0.6-1.3); POTASSIUM 3.1 mmol/L (3.5-5.1)
--- NOTE | 2020-07-22 06:22 | NUR ---
PT A&O, ON RA. MEDS GIVEN ORDERED. NO C/O PAIN. UP TO THE BR WITH WALKER. PT SLEPT MOST OF THE NIGHT. ELECTROLYTE PLACEMENT IN PROGRESS PER PROTOCOL. HGB CAME BACK 7.0 THIS MORNING, DENIED ANY SYMTOMS. CALL LIGHT WITHIN REACH. WILL CONTINUE TO MONITOR.
[2020-07-22 07:55] VITALS: BP 128/65
[2020-07-22 09:24] LABS: HEMATOCRIT 23.2 % (37.0-47.0); HEMOGLOBIN 7.7 gm/dL (12.0-15.0); MCH 31.8 pg (26.0-34.0); MCHC 33.4 g/dL (28.0-37.0); MCV 95.2 fL (80.0-100.0); MPV 6.3 fl. (7.2-11.1); RBC 2.44 mil/uL (4.20-5.00); RDW-CV 12.4 % (10.5-14.5); WBC 8.6 thou/uL (4.0-11.0)
--- NOTE | 2020-07-22 12:01 | NUR ---
[facility] Cr improving.
[2020-07-22 12:06] VITALS: BP 16/73
[2020-07-22] MEDS ORDERED: NORVASC5 MG PO (16:29)
[2020-07-22] MEDS ORDERED: HYDRALAZINE 2525 MG PO (16:53)
[2020-07-22 16:54] VITALS: BP 16/73
--- NOTE | 2020-07-22 17:30 | NUR ---
PATIENT DISCHARGED TO HOME WITH HOME HEALTH. DISCHARGE PAPERS REVIEWED AND SIGNED. PRESCRIPTIONS CALLED TO PHARMACY AND INFORMATION SHEETS GIVEN. NO IV. HOME MEDICATION RETURNED. PATIENT DENIES ANY FURTHER NEEDS. PATIENT TAKEN BY WHEELCHAIR TO EXIT. LEFT WITH .
[2020-07-22 17:59] VITALS: BP 16/73
--- NOTE | 2020-07-23 13:39 | NUR ---
[facility] Nurse Transition Navigator F/U Note: Patient was discharged yesterday and every c.m. not indicated that HH will be in place. There was no order for H.H. Call to patient to confirm she still wants HH. Agreed and then call to PCP, Dr. Lori Dubon and HH order received and faxed to intake. Explained to patient that she will receive a call this evening with a time for SOC tomorrow. Patient will have her meds ready for review. Patient will make akppointment with Dr. Lori Dubon.
== END 2020-07-22 17:30 | disposition home health service (06) | DRG 304 ==
LOC: M.ERS 12:57 → M.TBA-ER 13:58 → M.2W 13:58 → M.ORTHSURG 07-21 14:05
PROVIDERS: Emergency Medicine Emergency Medical Services; Internal Medicine; Internal Medicine Nephrology; ADMIT Internal Medicine; ATTEND Internal Medicine
DX: I16.1 Hypertensive emergency (principal); N17.0 Acute kidney failure with tubular necrosis; E87.1 Hypo-osmolality and hyponatremia; N18.5 Chronic kidney disease, stage 5; E87.2 Acidosis; I12.0 Hypertensive chronic kidney disease with stage 5 chronic kidney disease or end stage renal disease; Z20.822 Contact with and (suspected) exposure to COVID-19; Z96.651 Presence of right artificial knee joint; E78.5 Hyperlipidemia, unspecified; M81.0 Age-related osteoporosis without current pathological fracture; K21.9 Gastro-esophageal reflux disease without esophagitis; F41.9 Anxiety disorder, unspecified; I48.91 Unspecified atrial fibrillation; M19.90 Unspecified osteoarthritis, unspecified site; G89.29 Other chronic pain; M54.5 Low back pain; E87.6 Hypokalemia; D63.8 Anemia in other chronic diseases classified elsewhere; K59.00 Constipation, unspecified; Z91.81 History of falling; Z90.710 Acquired absence of both cervix and uterus; Z90.49 Acquired absence of other specified parts of digestive tract; Z98.84 Bariatric surgery status; Z79.899 Other long term (current) drug therapy